=== PATIENT | female | born 1955 | race Caucasian/White ===

== ENCOUNTER 2017-08-04 08:19 | Day surgery (SDC) | payer OTHER ==
[2017-08-03 11:41] VITALS: BMI 30.6
[2017-08-04] MEDS ORDERED: Lidocaine Hydrochloride 5 ML INJ ONE (09:15)
[2017-08-04] MEDS ORDERED: Propofol 10 mg/ml Inj (20 ML) ONE (09:15)
[2017-08-04] MEDS ORDERED: Midazolam 2 MG/2 ML VIAL ONE (09:30)
[2017-08-04] MEDS ORDERED: MethylPREDNISolone Depo 40 mg/ml Inj ONE (10:48)
[2017-08-04] MEDS ORDERED: Bupivacaine HCl 0.25% PF (10 ml) Inj ONE (10:48)
[2017-08-04] MEDS ORDERED: Lactated Ringer's 1,000 ML IV ONE (10:52)
[2017-08-04] MEDS ORDERED: Lidocaine Hydrochloride 10 ML INJ ONE (10:57)
[2017-08-04 11:53] VITALS: BP 150/70; PULSE 67; RESP 18; TEMP 97.2; O2SAT 100
--- NOTE | 2017-08-04 17:19 | RAD ---
PROCEDURE: Intraoperative Fluoroscopy. HISTORY: OSTEOARTHRITIS BILATERAL FINDINGS: Fluoroscopic assistance was provided for pain management. Please fluoroscopic time (continuous mode) utilized during the procedure:
== END 2017-08-04 12:17 | disposition home or self-care (01) ==
LOC: C.SDS 08:19
PROVIDERS: ATTEND Anesthesiology Pain Medicine
DX: M17.0 Bilateral primary osteoarthritis of knee (principal)
CPT/HCPCS: 20610; 82948; J1030; J2704; J7120

== ENCOUNTER 2017-11-24 10:15 | Day surgery (SDC) | payer OTHER ==
[2017-08-03 11:41] VITALS: BMI 30.6
[~2017-11-24 10:15] MED LIST: Bupivacaine HCl 0.5% PF (10 ml) Inj ONE; Iohexol 240 (50 ml) ONE; MethylPREDNISolone Depo 40 mg/ml Inj ONE
[2017-11-24] MEDS ORDERED: Midazolam 2 MG/2 ML VIAL ONE (10:55)
[2017-11-24] MEDS ORDERED: Labetalol 25mg/5ml Syringe ONE (11:15)
[2017-11-24] MEDS ORDERED: Lidocaine Hydrochloride 5 ML INJ ONE (11:39)
[2017-11-24 12:46] VITALS: BP 137/78; PULSE 69; RESP 12; TEMP 97.5; O2SAT 98
--- NOTE | 2017-11-24 12:52 | OP ---
PROCEDURE DATE: PREOPERATIVE DIAGNOSES: Right knee pain, left knee pain, osteoarthritis. POSTOPERATIVE DIAGNOSES: Right knee pain, left knee pain, osteoarthritis. PROCEDURE: Right and left knee genicular nerve block, superomedial, superolateral and inferomedial branches, x-ray guidance fluoroscopy. TYPE OF ANESTHESIA: Local and MAC sedation. COMPLICATIONS: None. ESTIMATED BLOOD LOSS: 2 mL. INDICATION: The patient with knee pain with end stage osteoarthritis. Pain continues to adversely affect quality of life and activities of daily living. The patient was referred to pain management for treatment. TECHNIQUE: After comprehensive informed consent was obtained, the risks of the procedure explained and questions answered. The patient was placed in supine position on the operating room table in a comfortable position. Confirmation of the procedure to be performed was obtained from the patient. The area was prepped and draped in a sterile fashion. Knee joint was identified in the AP view, medial and lateral femoral condyle, cortical lines were focused on. Sterile drape was placed around the area to be injected. The area to be injected was superficially anesthetized with 2 mL of 1% lidocaine using a 27-gauge needle, 1.25-inch at each level noted above. A 22-gauge 3.5 inch spinal needle was used to advance to the medial and lateral femoral condyle grooves as well as the medial tibial groove. AP and lateral views were taken with fluoroscopy to confirmed needle placement. Total volume of 10 mL of 0.25% Marcaine with 40 mg Depo-Medrol was injected with intermittent aspiration. No heme or CSF was aspirated throughout. The patient tolerated the procedure well. Vital signs remained stable. The procedure was repeated on the contralateral knee. DISPOSITION: The patient was discharged home in stable condition with instruction to follow up in 2 weeks. Dakotah West MD
--- NOTE | 2017-11-24 13:50 | RAD ---
PROCEDURE: Intraoperative Fluoroscopy. HISTORY: BILAT KNEE OSTEOARTHRITIS FINDINGS: Fluoroscopic assistance was provided for bilateral knee block. Total fluoroscopic time (continuous mode) utilized during the procedure: 30.6 seconds. Total exam DLP: 0.71 (mGy). Please refer to the operative report from [facility]OH[facility] Pryor.
== END 2017-11-24 12:34 | disposition home or self-care (01) ==
LOC: C.SDS 10:15
PROVIDERS: ATTEND Anesthesiology Pain Medicine
DX: M17.0 Bilateral primary osteoarthritis of knee (principal); M25.562 Pain in left knee; M25.561 Pain in right knee
CPT/HCPCS: 64418; 64450; 76000; 82948; J1030; J2250; J3010